=== PATIENT | female | born 1945 | race Caucasian/White ===

== ENCOUNTER 2016-07-23 07:58 | Day surgery (SDC) | payer MEDICARE, MEDICAID ==
[~2016-07-23] VITALS: Ht 162.6 cm; Wt 73.9 kg
[~2016-07-23 07:58] MED LIST: ASPIRIN EC81 MG PO; CIPROFLOXACN500 MG PO; FISH OIL1000 MG PO; FLORASTOR250 M1 PO; LEVOTHYROXIN100 MCG PO; LEVOTHYROXIN50 MCG PO; LIPITOR20 MG PO; METRONIDAZOL500 MG PO; PREDNISONE10 MG PO; TRAMADOL HCL50 MG PO; TRICOR145 MG PO; ULTRAM50 M1 PO
[2016-07-23 11:24] VITALS: BP 124/59
== END 2016-07-23 10:10 | disposition home or self-care (01) ==
LOC: ENDO 07:58
PROVIDERS: ATTEND Surgery
PROC: 0DBP8ZX Excision of Rectum, Via Natural or Artificial Opening Endoscopic, Diagnostic (ICD-10-PCS; principal; 2016-07-23)
PROC: 0DBN8ZX Excision of Sigmoid Colon, Via Natural or Artificial Opening Endoscopic, Diagnostic (ICD-10-PCS; 2016-07-23)
DX: K50.10 Crohn's disease of large intestine without complications (principal); K56.69 Other intestinal obstruction; I10 Essential (primary) hypertension

== ENCOUNTER 2017-01-03 20:01 | Emergency (ER) | payer MEDICARE ==
[~2017-01-03] VITALS: Ht 162.6 cm; Wt 79.6 kg
[2017-01-03] MEDS ORDERED: LEVOTHYROXIN75 MCG PO (20:25)
[2017-01-03 20:48] VITALS: BP 138/74
== END 2017-01-03 20:53 | disposition home or self-care (01) ==
LOC: ED 20:01
DX: S96.911A Strain of unspecified muscle and tendon at ankle and foot level, right foot, initial encounter (principal); E03.9 Hypothyroidism, unspecified; G47.30 Sleep apnea, unspecified; X58.XXXA Exposure to other specified factors, initial encounter

== ENCOUNTER 2019-03-29 16:18 | Emergency (ER) | payer MEDICARE, MEDICAID ==
[~2019-03-29] VITALS: Ht 162.6 cm; Wt 67.0 kg
[~2019-03-29 16:18] MED LIST changes: +ACCUPRIL5 MG PO; +CALCI10 XX; +CALCIU1 PO; +HYDROCO/APAP1 TA9 PO; +LEVOTHYROXIN75 MCG PO; +LIPITOR10 M1 PO
[2019-03-29] MEDS ORDERED: TOVIAZ8 MG PO (17:06)
[2019-03-29 18:15] LABS: HEMATOCRIT 48.3 % (37.0-47.0); HEMOGLOBIN 15.7 g/dl (12.0-16.0); IMMATURE GRANULOCYTES 0.5 % (0.0-5.0); MEAN CELL VOLUME 89.3 fL CALC (80.0-100.0); MEAN CORPUSCULAR HGB CONC 32.5 g/L CALC (32.0-36.0); NEUT# 3.64 thou/uL (2.00-7.15); RED BLOOD COUNT 5.41 mill/uL (4.20-5.60); RED CELL DISTRI WIDTH 13.2 % (11.5-15.5)
[2019-03-29 18:31] LABS: BUN 16 mg/dL (8-23); BUN/CREATININE RATIO 34 (12-20 (CALC)); CARBON DIOXIDE 27 mmol/l (22-30); CHLORIDE 98 mmol/l (95-108); CREATININE 0.5 mg/dL (0.5-1.0); GFR > 60 ML/MIN (>=60 (CALC)); GFR FOR AFR.AMER. > 60 ML/MIN (>=60 (CALC)); SODIUM 138 mmol/l (137-146)
[2019-03-29 18:32] LABS: ANION GAP 16 (6-22 (CALC))
[2019-03-29] MEDS ORDERED: ONDANSETRON4 MG PO (18:53)
[2019-03-29] MEDS ORDERED: K-TAB20 MEQ PO (18:53)
[2019-03-29] MEDS ORDERED: ZPAK PO (18:53)
[2019-03-29 19:05] VITALS: BP 134/72
== END 2019-03-29 19:23 | disposition home or self-care (01) ==
LOC: ED 16:18
PROVIDERS: Family Medicine
DX: K52.9 Noninfective gastroenteritis and colitis, unspecified (principal); J06.9 Acute upper respiratory infection, unspecified; E87.6 Hypokalemia

== ENCOUNTER 2019-10-25 17:55 | Emergency (ER) | payer MEDICARE ==
[~2019-10-25] VITALS: Ht 162.6 cm; Wt 69.0 kg
[~2019-10-25 17:55] MED LIST changes: +K-TAB20 MEQ PO; +ONDANSETRON4 MG PO; +TOVIAZ8 MG PO; +ZPAK PO
[2019-10-25 18:01] VITALS: BP 151/102
[2019-10-25] MEDS ORDERED: AMOX/K CLAV875 M1 PO (18:18)
== END 2019-10-25 18:58 | disposition home or self-care (01) ==
LOC: ED 17:55
DX: K08.89 Other specified disorders of teeth and supporting structures (principal)

== ENCOUNTER 2020-03-09 14:23 | Observation (INO) | payer MEDICARE ==
[~2020-03-09] VITALS: Ht 162.6 cm; Wt 71.7 kg
[~2020-03-09 14:23] MED LIST changes: +AMOX/K CLAV875 M1 PO
--- NOTE | 2020-03-09 14:41 | NUR ---
PT AMBULATED TO ROOM WITH STEADY GAIT, NO SOB OR DISTRESS NOTED, FOR BEDSIDE TRIAGE CALL PAZ WITHIN REACH
--- NOTE | 2020-03-09 15:40 | NUR ---
PT RESTING ON STRETCHER WITH INFUSION INFUSING PATENTLY. DENIES ANY NEEDS AT THIS TIME
[2020-03-09 16:41] LABS: URINE BILIRUBIN - DIPSTICK NEGATIVE (NEGATIVE); URINE BLOOD DIPSTICK TRACE-INTACT (NEGATIVE); URINE COLOR YELLOW; URINE GLUCOSE - DIPSTICK NEGATIVE (NEGATIVE); URINE KETONE TRACE mg/dL (NEGATIVE); URINE LEUK ESTERASE NEGATIVE (NEGATIVE); URINE NITRITE - DIPSTICK POSITIVE (Negative); URINE PROTEIN - DIPSTICK NEGATIVE (NEG-TRACE); URINE RBC 0-2 RBC/hpf (0-5); URINE SPECIFIC GRAVITY 1.025; URINE UROBILINOGEN - DIPSTICK 0.2 E.U./dL (0.2)
[2020-03-09 16:42] LABS: URINE BACTERIA MANY hpf
--- NOTE | 2020-03-09 16:49 | NUR ---
PT RECONNECTED TO MONITORING EQUIP AND MAG INFUSION. PT DENIES ANY NEEDS AT THIS TIME
--- NOTE | 2020-03-09 19:05 | NUR ---
GAVE REPORT TO CHACHO
--- NOTE | 2020-03-09 19:18 | NUR ---
IV INFUSING. DISPOSITION PENDING. RESTING QUIETLY.
--- NOTE | 2020-03-09 20:23 | NUR ---
CONTACTED DAUGHTER FOR PT TO ADVISE OF ADMISSION.
--- NOTE | 2020-03-09 21:13 | NUR ---
RESTING QUIETLY AWAITING ROOM ASSIGNMENT.
--- NOTE | 2020-03-09 21:35 | NUR ---
Admission Note Report Given to: WADE MCCORMACK Transported by: X Wheelchair Stretcher Transported with: X Nurse Transporter X Patent IV O2 X Records Associate Location: X ICU [facility]
--- NOTE | 2020-03-09 21:40 | NUR ---
75 yr old white female admitted icu3 as medsurg tele overflow per w/c from er. denies weakness @ present. amb to bed x1 assist. mahesh well. bed weight obtained. campus monitor shows sinus rhythm hr 83. #20 rac saline lock. history obtained per pt & er record. oriented to room. fall precautions initiated. supper meal given as requested.
[2020-03-09 21:45] VITALS: BP 173/71
--- NOTE | 2020-03-10 00:01 | NUR ---
athletic monitor shows sinus rhythm hr 80.
[2020-03-10 00:45] VITALS: BP 110/56
[2020-03-10 04:00] VITALS: BP 121/52
--- NOTE | 2020-03-10 04:00 | NUR ---
monitor car operator shows sinus rhythm hr 82.
[2020-03-10 07:00] VITALS: BP 155/77
--- NOTE | 2020-03-10 07:30 | NUR ---
pt awake in bed; no apparent distress noted; assessment completed at this time; pt alert and oriented; admits to headache; will medicated; no n/v noted per this creative services writer; resp even and unlabored; lungs clear; skin color wnl; ra; hr reg; strong pulses; no edema noted; sr on monitor; abd soft with bs present; no bm noted per creative services writer; pt admits to diarrhea x2 during the night; pt admits to voiding without complication; no urine to inspect at this time; pt refusing bsc/ ambulates to bathroom; #20 to rac saline locked; no redness or edema noted at site; scabs noted to shins; pt admits to fall; plan of care/ am meds explained; fall prec explained; call light within reach; will continue to monitor
--- NOTE | 2020-03-10 08:20 | NUR ---
awake in bed; no apparent distress noted; sr on monitor; call light within reach; will continue to monitor
[2020-03-10] MEDS ORDERED: ATORVASTATIN CA10 MG PO (09:25)
[2020-03-10] MEDS ORDERED: OMEPRAZOLE DR40 MG PO (09:28)
[2020-03-10] MEDS ORDERED: LEVOTHYROXIN75 MCG PO (09:29)
--- NOTE | 2020-03-10 10:20 | NUR ---
awake; no apparent distress noted; pt offers no complaints; iv intact; sr on monitor; call light within reach; will continue to monitor
--- NOTE | 2020-03-10 10:45 | NUR ---
Dr Brock present at bedside to assess pt and discuss plan of care
[2020-03-10 11:00] VITALS: BP 115/67
--- NOTE | 2020-03-10 12:17 | NUR ---
awake in bed eating lunch; no apparent distress noted; pt offers no complaints; iv intact; sr on monitor; call light within reach; will continue to monitor
--- NOTE | 2020-03-10 14:20 | NUR ---
resting in bed with eyes closed; no apparent distress noted; sr on monitor; iv intact; call light within reach; will continue to monitor
--- NOTE | 2020-03-10 16:17 | NUR ---
pt awake in bed; pt has removed all monitoring attachments; pt states "they told me to"; monitoring attachments explained and to be reapplied; iv intact; call light within reach; will continue to monitor
[2020-03-10 16:30] VITALS: BP 121/66
--- NOTE | 2020-03-10 17:57 | NUR ---
pt awake in bed eating dinner; no apparent distress noted; iv flushed and patent; no redness or edema noted at site; sr on monitor; pt offers no complaints; call light within reach
--- NOTE | 2020-03-10 19:00 | NUR ---
RECEIVED REPORT FROM AM NURSE. PATIENT CURRENTLY IN BED. NO REQUEST OR COMPLAINTS. WILL CONTINUE TO MONITOR.
[2020-03-10 19:50] VITALS: BP 139/69
--- NOTE | 2020-03-10 21:00 | NUR ---
ASSESSMENT COMPLETED. PATIENT VITALS STABLE. PATIENT WITH NO SIGNS OF DISTRESS. PATIENT WITH NO REQUEST. PATIENT RESTING IN BED. PERIPHERAL IV. SALINE LOCK. WILL CONTINUE TO MONITOR.
--- NOTE | 2020-03-10 23:00 | NUR ---
patient sleeping. patient with no signs of distress. vitals stable. patient with no request will continue to monitor.
[2020-03-11 00:13] VITALS: BP 105/51
--- NOTE | 2020-03-11 01:00 | NUR ---
patient continues sleeping. patient self repositioned. patient in no distress. will continue to monitor.
--- NOTE | 2020-03-11 03:00 | NUR ---
PATIENT SLEEPING. NO CHANGES. WILL CONTINUE TO MONITOR.
[2020-03-11 04:50] VITALS: BP 111/55
--- NOTE | 2020-03-11 05:00 | NUR ---
PATIENT AMBULATED TO BATHROOM. PATIENT VOIDED. NO BM. STAND BY ASSIST. PATIENT WITH NO SIGNS OF DISTRESS. WILL CONTINUE TO MONITOR.
[2020-03-11 05:02] LABS: IMMATURE GRANULOCYTES 0.3 % (0.0-5.0); MEAN CELL VOLUME 94.1 fL CALC (80.0-100.0); MEAN CORPUSCULAR HGB 29.8 pG CALC (26.0-32.0); MEAN CORPUSCULAR HGB CONC 31.7 g/dL CAL (32.0-36.0); NEUT# 3.62 thou/uL (2.00-7.15); RED BLOOD COUNT 4.43 mill/uL (4.20-5.60); RED CELL DISTRI WIDTH 14.2 % (11.5-15.5)
[2020-03-11 05:05] LABS: HEMATOCRIT 41.7 % (37.0-47.0); HEMOGLOBIN 13.2 g/dl (12.0-16.0)
[2020-03-11 05:07] LABS: ANION GAP 11 (6-22 (CALC)); BUN 17 mg/dL (8-23); BUN/CREATININE RATIO 24 (12-20 (CALC)); CARBON DIOXIDE 27 mmol/l (22-30); CHLORIDE 107 mmol/l (95-108); CREATININE 0.7 mg/dL (0.5-1.0); GFR > 60 ML/MIN (>=60 (CALC)); GFR FOR AFR.AMER. > 60 ML/MIN (>=60 (CALC)); POTASSIUM 3.5 mmol/l (3.5-5.1); SODIUM 141 mmol/l (137-146)
[2020-03-11 07:15] VITALS: BP 148/72
--- NOTE | 2020-03-11 07:15 | NUR ---
pt resting in bed with eyes closed; no apparent distress noted; easily aroused; assessment completed at this time; pt alert and oriented; admits to back pain; will medicate; no n/v noted; resp even and unlabored; lungs clear; skin color wnl; ra; hr reg; strong pulses; no edema noted; sr/ occ pvc on monitor; abd soft with bs present; no bm noted per residential mortgage underwriter; pt admits to voiding without pain or burning; no urine to inspect at this time; pt refusing bsc; #20 to rac flushed and patent; no redness or edema noted at site; scab noted to cardenas; plan of care/ am meds explained; call light within reach; will continue to monitor
--- NOTE | 2020-03-11 08:10 | NUR ---
awake in bed eating breakfast; no apparent distress noted; iv intact; sr on monitor; call light within reach; will continue to monitor
--- NOTE | 2020-03-11 10:04 | NUR ---
awake in bed; pt has removed lunchroom monitor; iv intact; sr on monitor; call light within reach; will continue to monitor
[2020-03-11] MEDS ORDERED: OMNICEF300 MG PO (10:05)
--- NOTE | 2020-03-11 10:20 | NUR ---
Dr Brock present at bedside to assess pt and discuss plan of care
--- NOTE | 2020-03-11 11:04 | NUR ---
SARAH Spencer present at bedside to discuss home health
--- NOTE | 2020-03-11 12:01 | NUR ---
awake in bed eating lunch; no apparent distress noted; pt offers no complaints; iv intact and patent; no redness or edema noted at site; sr on monitor; iv intact; call light within reach; will continue to monitor
[2020-03-11 12:47] VITALS: BP 138/64
--- NOTE | 2020-03-11 12:47 | NUR ---
DISCHARGE INSTRUCTIONS REVIEWED IN DETAIL; IV REMOVED WITH CATHETER TIP INTACT;
--- NOTE | 2020-03-11 12:56 | NUR ---
Discharge instructions given. Patient verbalizes understanding of same. Discharged in stable condition via Wheelchair to Home with SELF. All belongings sent with pt.
== END 2020-03-11 12:56 | disposition home health service (06) ==
LOC: ED 14:23 → ED-I 18:19 → ED 18:39 → ICU 18:40
PROVIDERS: Family Medicine; ADMIT Internal Medicine; ATTEND Internal Medicine
DX: R53.1 Weakness (principal); N39.0 Urinary tract infection, site not specified; E83.42 Hypomagnesemia; E03.9 Hypothyroidism, unspecified; B96.20 Unspecified Escherichia coli [E. coli] as the cause of diseases classified elsewhere; Z87.820 Personal history of traumatic brain injury; Z20.828 Contact with and (suspected) exposure to other viral communicable diseases
CPT/HCPCS: J3475

== ENCOUNTER 2021-10-03 17:08 | Emergency (ER) | payer MEDICARE ==
[~2021-10-03] VITALS: Ht 162.6 cm; Wt 69.0 kg
[2021-10-03] VITALS (9 sets, daily range): BP systolic 110–223; BP diastolic 67–193
[~2021-10-03 17:08] MED LIST changes: +ATORVASTATIN CA10 MG PO; +BRILINTA90 MG PO; +CARAFATE1 GM PO; +CYANOCOBAL1000 MCG/M; +ENTRESTO 24-261 TAB; +LASIX 40 MG TAB40 MG PO; +LOPRESSOR25 M1 PO; +MYRBETRIQ25 MG; +OMEPRAZOLE DR40 MG PO; +OMNICEF300 MG PO; +PANTOPRAZOLE SO40 M1 PO; +ROSUVASTATIN CA20 MG; +ZOLPIDEM TARTRA10 MG PO
== END 2021-10-03 21:42 ==
LOC: ED 17:08
DX: T81.718A Complication of other artery following a procedure, not elsewhere classified, initial encounter (principal); I72.4 Aneurysm of artery of lower extremity; Y84.0 Cardiac catheterization as the cause of abnormal reaction of the patient, or of later complication, without mention of misadventure at the time of the procedure; Z95.5 Presence of coronary angioplasty implant and graft

== ENCOUNTER 2021-12-07 18:15 | Emergency (ER) | payer MEDICARE ==
[~2021-12-07] VITALS: Ht 162.6 cm; Wt 69.1 kg
[2021-12-07 18:55] VITALS: BP 98/81
[2021-12-07 19:01] VITALS: BP 142/67
[2021-12-07 19:15] VITALS: BP 132/57
[2021-12-07 19:30] VITALS: BP 115/64
[2021-12-07 19:33] LABS: HEMATOCRIT 39.7 % (37.0-47.0); HEMOGLOBIN 13.3 g/dl (12.0-16.0); IMMATURE GRANULOCYTES 0.4 % (0.0-5.0); MEAN CELL VOLUME 90.4 fL CALC (80.0-100.0); MEAN CORPUSCULAR HGB 30.3 pG CALC (26.0-32.0); MEAN CORPUSCULAR HGB CONC 33.5 g/dL CAL (32.0-36.0); NEUT# 5.43 thou/uL (2.00-7.15); RED BLOOD COUNT 4.39 mill/uL (4.20-5.60); RED CELL DISTRI WIDTH 13.2 % (11.5-15.5)
[2021-12-07 19:49] LABS: ALBUMIN 4.7 g/dL (3.2-5.0); ALKALINE PHOSPHATASE 87 u/l (38-126); BILIRUBIN, TOTAL 0.4 mg/dL (0.0-1.4); BUN 20 mg/dL (8-23); BUN/CREATININE RATIO 31 (12-20 (CALC)); CARBON DIOXIDE 25 mmol/l (22-30); CHLORIDE 105 mmol/l (95-108); CREATININE 0.7 mg/dL (0.5-1.0); GFR FOR AFR.AMER. > 60 ML/MIN (>=60 (CALC)); GFR OTHER RACES > 60 ML/MIN (>=60 (CALC)); SGOT/AST 47 u/l (9-36); SODIUM 141 mmol/l (137-146); TOTAL PROTEIN 7.8 g/dL (6.3-8.2)
[2021-12-07 19:51] LABS: D-DIMER 0.23 mg/L (0.19-0.60)
[2021-12-07 19:57] LABS: ACT PARTIAL THROMBO TIME 23.8 SECONDS (20.0-32.5); INTERNATIONAL NORMALIZED RATIO 1.2 RATIO (0.7-1.3); PROTHROMBIN TIME 12.1 SECONDS (9.0-12.5)
[2021-12-07 20:01] LABS: MYOGLOBIN 38 ng/mL (0 - 62)
[2021-12-07 20:07] LABS: ANION GAP 15 (6-22 (CALC))
[2021-12-07 21:09] VITALS: BP 115/64
== END 2021-12-07 21:12 | disposition home or self-care (01) ==
LOC: ED 18:15
PROVIDERS: Family Medicine
DX: S90.01XA Contusion of right ankle, initial encounter (principal); R06.00 Dyspnea, unspecified; I50.9 Heart failure, unspecified; I25.2 Old myocardial infarction; X58.XXXA Exposure to other specified factors, initial encounter; Z86.718 Personal history of other venous thrombosis and embolism; Z95.820 Peripheral vascular angioplasty status with implants and grafts; Z79.02 Long term (current) use of antithrombotics/antiplatelets; Z79.82 Long term (current) use of aspirin; M79.604 Pain in right leg; M79.89 Other specified soft tissue disorders

== ENCOUNTER 2021-12-17 15:27 | Emergency (ER) | payer MEDICARE ==
[~2021-12-17] VITALS: Ht 162.6 cm; Wt 72.3 kg
[2021-12-17 18:23] LABS: HEMATOCRIT 44.2 % (37.0-47.0); IMMATURE GRANULOCYTES 0.5 % (0.0-5.0); MEAN CELL VOLUME 88.9 fL CALC (80.0-100.0); MEAN CORPUSCULAR HGB 30.2 pG CALC (26.0-32.0); MEAN CORPUSCULAR HGB CONC 33.9 g/dL CAL (32.0-36.0); NEUT# 4.88 thou/uL (2.00-7.15); RED BLOOD COUNT 4.97 mill/uL (4.20-5.60); RED CELL DISTRI WIDTH 13.6 % (11.5-15.5)
[2021-12-17 19:21] LABS: ALBUMIN 5.1 g/dL (3.2-5.0); ALKALINE PHOSPHATASE 60 u/l (38-126); BILIRUBIN, TOTAL 0.6 mg/dL (0.0-1.4); BUN 19 mg/dL (8-23); BUN/CREATININE RATIO 31 (12-20 (CALC)); CHLORIDE 98 mmol/l (95-108); CREATININE 0.6 mg/dL (0.5-1.0); GFR FOR AFR.AMER. > 60 ML/MIN (>=60 (CALC)); GFR OTHER RACES > 60 ML/MIN (>=60 (CALC)); LIPASE 106 u/l (23-300); POTASSIUM 3.6 mmol/l (3.5-5.1); SODIUM 137 mmol/l (137-146)
[2021-12-17 19:24] LABS: ANION GAP 22 (6-22 (CALC)); CARBON DIOXIDE 21 mmol/l (22-30); SGOT/AST 93 u/l (9-36)
[2021-12-17] MEDS ORDERED: ONDANSETRON4 MG PO (19:54)
[2021-12-17 20:38] VITALS: BP 116/67
== END 2021-12-17 20:49 | disposition home or self-care (01) ==
LOC: ED 15:27
PROVIDERS: Nurse Practitioner
DX: U07.1 COVID-19 (principal)

== ENCOUNTER 2022-04-14 02:52 | Emergency (ER) | payer MEDICARE ==
[~2022-04-14] VITALS: Ht 162.6 cm; Wt 70.0 kg
[2022-04-14] VITALS (18 sets, daily range): BP systolic 96–147; BP diastolic 44–83
[2022-04-14 03:42] LABS: BASO% 0.5 % (0-3); EOS% 3.7 % (0-8); HEMATOCRIT 42.1 % (37.0-47.0); HEMOGLOBIN 13.4 g/dl (12.0-16.0); IMMATURE GRANULOCYTES 0.4 % (0.0-5.0); LYMPH% 28.7 % (15-41); MEAN CELL VOLUME 93.1 fL CALC (80.0-100.0); MEAN CORPUSCULAR HGB 29.6 pG CALC (26.0-32.0); MEAN CORPUSCULAR HGB CONC 31.8 g/dL CAL (32.0-36.0); MONO% 8.1 % (2-13); NEUT# 5.47 thou/uL (2.00-7.15); NEUT% 58.6 % (42-76); RED BLOOD COUNT 4.52 mill/uL (4.20-5.60); RED CELL DISTRI WIDTH 13.4 % (11.5-15.5)
[2022-04-14 03:56] LABS: ALBUMIN 4.3 g/dL (3.2-5.0); ALKALINE PHOSPHATASE 79 u/l (38-126); ANION GAP 13 (6-22 (CALC)); BILIRUBIN, TOTAL 0.3 mg/dL (0.0-1.4); BUN 22 mg/dL (8-23); BUN/CREATININE RATIO 31 (12-20 (CALC)); CARBON DIOXIDE 26 mmol/l (22-30); CHLORIDE 104 mmol/l (95-108); CREATININE 0.7 mg/dL (0.5-1.0); GFR FOR AFR.AMER. > 60 ML/MIN (>=60 (CALC)); GFR OTHER RACES > 60 ML/MIN (>=60 (CALC)); LIPASE 97 u/l (23-300); POTASSIUM 4.1 mmol/l (3.5-5.1); SGOT/AST 64 u/l (9-36); SODIUM 138 mmol/l (137-146)
[2022-04-14 04:16] LABS: D-DIMER 0.17 mg/L (0.19-0.60)
[2022-04-14 04:31] LABS: ACT PARTIAL THROMBO TIME 23.6 SECONDS (20.0-32.5); INTERNATIONAL NORMALIZED RATIO 1.2 RATIO (0.7-1.3); PROTHROMBIN TIME 11.7 SECONDS (9.0-12.5)
[2022-04-14] MEDS ORDERED: PEPCID40 MG PO (06:53)
== END 2022-04-14 08:11 | disposition home or self-care (01) ==
LOC: ED 02:52
PROVIDERS: Family Medicine
DX: R07.89 Other chest pain (principal); I11.0 Hypertensive heart disease with heart failure; I50.9 Heart failure, unspecified; I25.10 Atherosclerotic heart disease of native coronary artery without angina pectoris; I25.2 Old myocardial infarction; Z95.5 Presence of coronary angioplasty implant and graft

== ENCOUNTER 2022-08-30 20:07 | Observation (INO) | payer MEDICARE ==
[2022-08-30] VITALS (9 sets, daily range): BP systolic 110–177; BP diastolic 52–88
[~2022-08-30] VITALS: Ht 162.6 cm; Wt 74.6 kg
[~2022-08-30 20:07] MED LIST changes: +PEPCID40 MG PO
[2022-08-30 21:49] LABS: URINE BILIRUBIN - DIPSTICK NEGATIVE (NEGATIVE); URINE BLOOD DIPSTICK MODERATE (NEGATIVE); URINE COLOR YELLOW; URINE GLUCOSE - DIPSTICK NEGATIVE (NEGATIVE); URINE KETONE 15 mg/dL (NEGATIVE); URINE LEUK ESTERASE NEGATIVE (NEGATIVE); URINE PH 5.5 (4.5-8.0); URINE PROTEIN - DIPSTICK TRACE mg/dL (NEG-TRACE); URINE SPECIFIC GRAVITY >=1.030; URINE UROBILINOGEN - DIPSTICK 0.2 E.U./dL (0.2)
[2022-08-30 21:50] LABS: BASO% 0.4 % (0-3); EOS% 3.1 % (0-8); HEMATOCRIT 45.9 % (37.0-47.0); HEMOGLOBIN 14.4 g/dl (12.0-16.0); IMMATURE GRANULOCYTES 0.3 % (0.0-5.0); LYMPH% 29.2 % (15-41); MEAN CELL VOLUME 91.6 fL CALC (80.0-100.0); MEAN CORPUSCULAR HGB 28.7 pG CALC (26.0-32.0); MEAN CORPUSCULAR HGB CONC 31.4 g/dL CAL (32.0-36.0); MONO% 7.4 % (2-13); NEUT# 5.36 thou/uL (2.00-7.15); NEUT% 59.6 % (42-76); RED BLOOD COUNT 5.01 mill/uL (4.20-5.60); RED CELL DISTRI WIDTH 13.4 % (11.5-15.5)
[2022-08-30 21:52] LABS: URINE NITRITE - DIPSTICK POSITIVE (Negative)
[2022-08-30 22:00] LABS: AMYLASE 111 u/l (30-110); BUN 22 mg/dL (8-23); BUN/CREATININE RATIO 28 (12-20 (CALC)); CHLORIDE 101 mmol/l (95-108); CREATININE 0.8 mg/dL (0.5-1.0); GFR FOR AFR.AMER. > 60 ML/MIN (>=60 (CALC)); GFR OTHER RACES > 60 ML/MIN (>=60 (CALC)); LIPASE 1626 u/l (23-300); POTASSIUM 3.8 mmol/l (3.5-5.1); SODIUM 138 mmol/l (137-146); TOTAL PROTEIN 8.1 g/dL (6.3-8.2)
[2022-08-30 22:02] LABS: ALKALINE PHOSPHATASE 97 u/l (38-126); ANION GAP 18 (6-22 (CALC)); BILIRUBIN, TOTAL 0.6 mg/dL (0.02-1.3); CARBON DIOXIDE 23 mmol/l (22-30); SGOT/AST 97 u/l (9-36)
[2022-08-30 22:04] LABS: URINE BACTERIA MODERATE hpf; URINE SQUAMOUS EPITHELIAL CELL FEW EPI/hpf (0-FEW)
[2022-08-31] MEDS ORDERED: OMEPRAZOLE DR40 MG PO (01:05)
[2022-08-31] MEDS ORDERED: LASIX 20 MG TAB20 MG PO (01:06)
[2022-08-31] MEDS ORDERED: AMBIEN10 MG PO (01:07)
[2022-08-31] MEDS ORDERED: PLAVIX75 MG PO (01:07)
[2022-08-31] MEDS ORDERED: ASPIRINCHW 81MG PO (01:08)
[2022-08-31] MEDS ORDERED: MAGNESIUM OXID400 M1 (01:09)
[2022-08-31] MEDS ORDERED: [UNRECOGNIZED DRUG - OTHER] (01:10)
[2022-08-31] MEDS ORDERED: CALCIUM600 M1 PO (01:10)
[2022-08-31] MEDS ORDERED: HYDROCORTISONE12 (01:11)
[2022-08-31] MEDS ORDERED: PROLIA60 MG/ML SC (01:12)
[2022-08-31 07:10] VITALS: BP 119/54
[2022-08-31 09:21] VITALS: BP 125/61
[2022-08-31 10:30] VITALS: BP 135/67
[2022-08-31 20:10] VITALS: BP 114/49
[2022-09-01 00:28] VITALS: BP 103/50
[2022-09-01 04:15] VITALS: BP 125/49
[2022-09-01 05:55] LABS: BASO% 0.9 % (0-3); EOS% 5.8 % (0-8); IMMATURE GRANULOCYTES 0.2 % (0.0-5.0); LYMPH% 22.3 % (15-41); MEAN CELL VOLUME 93.3 fL CALC (80.0-100.0); MEAN CORPUSCULAR HGB 29.4 pG CALC (26.0-32.0); MEAN CORPUSCULAR HGB CONC 31.5 g/dL CAL (32.0-36.0); NEUT# 4.17 thou/uL (2.00-7.15); NEUT% 63.8 % (42-76); RED BLOOD COUNT 4.05 mill/uL (4.20-5.60)
[2022-09-01 06:02] LABS: HEMATOCRIT 37.8 % (37.0-47.0); HEMOGLOBIN 11.9 g/dl (12.0-16.0)
[2022-09-01 06:09] LABS: ALKALINE PHOSPHATASE 101 u/l (38-126); AMYLASE 82 u/l (30-110); ANION GAP 10 (6-22 (CALC)); BUN 9 mg/dL (8-23); BUN/CREATININE RATIO 16 (12-20 (CALC)); CARBON DIOXIDE 24 mmol/l (22-30); CHLORIDE 109 mmol/l (95-108); CREATININE 0.5 mg/dL (0.5-1.0); GFR FOR AFR.AMER. > 60 ML/MIN (>=60 (CALC)); GFR OTHER RACES > 60 ML/MIN (>=60 (CALC)); LIPASE 506 u/l (23-300); POTASSIUM 3.8 mmol/l (3.5-5.1); SGOT/AST 161 u/l (9-36); SODIUM 139 mmol/l (137-146)
[2022-09-01 06:10] LABS: ALBUMIN 3.4 g/dL (3.2-5.0); BILIRUBIN, TOTAL 0.2 mg/dL (0.02-1.3); TOTAL PROTEIN 5.8 g/dL (6.3-8.2)
[2022-09-01 06:35] VITALS: BP 108/52
[2022-09-01 07:36] VITALS: BP 129/55
[2022-09-01 10:34] VITALS: BP 107/45; BP 161/41
[2022-09-01 20:17] VITALS: BP 119/46
[2022-09-02 00:24] VITALS: BP 91/40
[2022-09-02 04:06] VITALS: BP 130/57
[2022-09-02 06:33] LABS: BASO% 0.8 % (0-3); EOS% 5.2 % (0-8); HEMOGLOBIN 11.3 g/dl (12.0-16.0); IMMATURE GRANULOCYTES 0.2 % (0.0-5.0); LYMPH% 25.4 % (15-41); MEAN CELL VOLUME 94.2 fL CALC (80.0-100.0); MEAN CORPUSCULAR HGB 29.6 pG CALC (26.0-32.0); MEAN CORPUSCULAR HGB CONC 31.4 g/dL CAL (32.0-36.0); MONO% 7.5 % (2-13); NEUT# 3.19 thou/uL (2.00-7.15); NEUT% 60.9 % (42-76); RED BLOOD COUNT 3.82 mill/uL (4.20-5.60); RED CELL DISTRI WIDTH 13.9 % (11.5-15.5)
[2022-09-02 06:41] VITALS: BP 126/58
[2022-09-02 06:43] LABS: ALBUMIN 3.2 g/dL (3.2-5.0); ALKALINE PHOSPHATASE 81 u/l (38-126); AMYLASE 54 u/l (30-110); ANION GAP 9 (6-22 (CALC)); BILIRUBIN, TOTAL 0.2 mg/dL (0.02-1.3); BUN 6 mg/dL (8-23); BUN/CREATININE RATIO 13 (12-20 (CALC)); CARBON DIOXIDE 24 mmol/l (22-30); CHLORIDE 109 mmol/l (95-108); CREATININE 0.5 mg/dL (0.5-1.0); GFR FOR AFR.AMER. > 60 ML/MIN (>=60 (CALC)); GFR OTHER RACES > 60 ML/MIN (>=60 (CALC)); LIPASE 145 u/l (23-300); POTASSIUM 3.4 mmol/l (3.5-5.1); SGOT/AST 72 u/l (9-36); SODIUM 139 mmol/l (137-146); TOTAL PROTEIN 5.3 g/dL (6.3-8.2)
[2022-09-02 08:00] VITALS: BP 126/58
[2022-09-02 10:30] VITALS: BP 124/52
[2022-09-02] MEDS ORDERED: KEFLEX500 MG PO (11:32)
[2022-09-02 12:00] VITALS: BP 124/52
== END 2022-09-02 12:30 | disposition home or self-care (01) ==
LOC: ED 20:07 → ED-I 08-31 00:40 → ED 08-31 01:10 → MS2 08-31 01:11
PROVIDERS: Emergency Medicine; Nurse Practitioner Family; ADMIT Internal Medicine; ATTEND Internal Medicine
DX: K85.90 Acute pancreatitis without necrosis or infection, unspecified (principal); N39.0 Urinary tract infection, site not specified; K80.20 Calculus of gallbladder without cholecystitis without obstruction; K86.1 Other chronic pancreatitis; I11.0 Hypertensive heart disease with heart failure; I50.9 Heart failure, unspecified; I25.10 Atherosclerotic heart disease of native coronary artery without angina pectoris; E03.9 Hypothyroidism, unspecified; B96.1 Klebsiella pneumoniae [K. pneumoniae] as the cause of diseases classified elsewhere; I25.2 Old myocardial infarction; Z95.820 Peripheral vascular angioplasty status with implants and grafts; Z87.820 Personal history of traumatic brain injury; Z95.5 Presence of coronary angioplasty implant and graft; Z79.02 Long term (current) use of antithrombotics/antiplatelets
CPT/HCPCS: J1650; Q9967; S0164

== ENCOUNTER 2023-04-03 16:58 | Emergency (ER) | payer MEDICARE ==
[~2023-04-03] VITALS: Ht 160 cm; Wt 68.0 kg
[~2023-04-03 16:58] MED LIST changes: +AMBIEN10 MG PO; +ASPIRINCHW 81MG PO; +CALCI17 PO; +CALCIUM600 M1 PO; +HYDROCORTISONE12; +KEFLEX500 MG PO; +LASIX 20 MG TAB20 MG PO; +MAGNESIUM OXID400 M1; +MAGNESIUM400 M1 PO; +PLAVIX75 MG PO; +PROLIA60 MG/ML SC; +[UNRECOGNIZED DRUG - OTHER] PO
[2023-04-03 17:12] VITALS: BP 158/73
[2023-04-03 17:15] VITALS: BP 157/72
[2023-04-03 17:31] VITALS: BP 117/85
[2023-04-03 17:46] VITALS: BP 112/79
[2023-04-03 17:54] LABS: BASO% 0.3 % (0-3); EOS% 2.1 % (0-8); HEMATOCRIT 43.6 % (37.0-47.0); HEMOGLOBIN 13.7 g/dl (12.0-16.0); IMMATURE GRANULOCYTES 0.4 % (0.0-5.0); LYMPH% 17.4 % (15-41); MEAN CELL VOLUME 92.8 fL CALC (80.0-100.0); MEAN CORPUSCULAR HGB 29.1 pG CALC (26.0-32.0); MEAN CORPUSCULAR HGB CONC 31.4 g/dL CAL (32.0-36.0); MONO% 8.8 % (2-13); NEUT# 7.9 thou/uL (2.00-7.15); RED BLOOD COUNT 4.7 mill/uL (4.20-5.60); RED CELL DISTRI WIDTH 16.1 % (11.5-15.5)
[2023-04-03 18:05] LABS: ALBUMIN 4.3 g/dL (3.2-5.0); ALKALINE PHOSPHATASE 86 u/l (38-126); ANION GAP 15 (6-22 (CALC)); BILIRUBIN, TOTAL 0.6 mg/dL (0.02-1.3); BUN 15 mg/dL (8-23); BUN/CREATININE RATIO 20 (12-20 (CALC)); CARBON DIOXIDE 24 mmol/l (22-30); CHLORIDE 102 mmol/l (95-108); CREATININE 0.8 mg/dL (0.5-1.0); GFR FOR AFR.AMER. > 60 ML/MIN (>=60 (CALC)); GFR OTHER RACES > 60 ML/MIN (>=60 (CALC)); LIPASE 66 u/l (23-300); POTASSIUM 4.1 mmol/l (3.5-5.1); SGOT/AST 31 u/l (9-36); SODIUM 136 mmol/l (137-146)
[2023-04-03 18:54] VITALS: BP 162/80
[2023-04-03 19:02] LABS: URINE BILIRUBIN - DIPSTICK Negative (NEGATIVE); URINE BLOOD DIPSTICK Trace-intact (NEGATIVE); URINE COLOR Yellow; URINE GLUCOSE - DIPSTICK Negative (NEGATIVE); URINE KETONE Negative (NEGATIVE); URINE LEUK ESTERASE Negative (NEGATIVE); URINE NITRITE - DIPSTICK Positive (Negative); URINE PROTEIN - DIPSTICK Negative (NEG-TRACE); URINE UROBILINOGEN - DIPSTICK 0.2 E.U./dL (0.2)
[2023-04-03 19:09] LABS: URINE RBC 0-2 RBC/hpf (0-5); URINE WBC 0-2 WBC/hpf (0-5)
[2023-04-03 19:10] LABS: URINE BACTERIA FEW hpf; URINE SQUAMOUS EPITHELIAL CELL FEW EPI/hpf (0-FEW)
[2023-04-03] MEDS ORDERED: CONSTULOSE10 GM/15 M PO (20:08)
[2023-04-03] MEDS ORDERED: KEFLEX500 MG PO (20:08)
[2023-04-03 20:13] VITALS: BP 162/80
== END 2023-04-03 20:22 | disposition home or self-care (01) ==
LOC: ED 16:58
PROVIDERS: Nurse Practitioner
DX: K59.00 Constipation, unspecified (principal); N39.0 Urinary tract infection, site not specified; B96.20 Unspecified Escherichia coli [E. coli] as the cause of diseases classified elsewhere; I50.9 Heart failure, unspecified; I25.2 Old myocardial infarction
CPT/HCPCS: Q9967

== ENCOUNTER 2023-05-25 13:00 | Emergency (ER) | payer MEDICARE ==
[~2023-05-25] VITALS: Ht 160 cm; Wt 70.3 kg
[~2023-05-25 13:00] MED LIST changes: +CONSTULOSE10 GM/15 M PO
[2023-05-25] MEDS ORDERED: ONDANSETRON HCl 4 MG/2 ML SDV IV ONE (13:05)
[2023-05-25 15:14] LABS: BASO% 0.3 % (0-3); EOS% 1.4 % (0-8); HEMATOCRIT 49.2 % (37.0-47.0); IMMATURE GRANULOCYTES 0.3 % (0.0-5.0); LYMPH% 27.5 % (15-41); MEAN CELL VOLUME 90.8 fL CALC (80.0-100.0); MEAN CORPUSCULAR HGB 29.5 pG CALC (26.0-32.0); MEAN CORPUSCULAR HGB CONC 32.5 g/dL CAL (32.0-36.0); MONO% 10.6 % (2-13); NEUT# 4.29 thou/uL (2.00-7.15); NEUT% 59.9 % (42-76); RED BLOOD COUNT 5.42 mill/uL (4.20-5.60); RED CELL DISTRI WIDTH 13.7 % (11.5-15.5)
[2023-05-25 15:31] LABS: INTERNATIONAL NORMALIZED RATIO 1.3 RATIO (0.7-1.3); PROTHROMBIN TIME 12.2 SECONDS (9.0-12.5)
[2023-05-25 15:33] LABS: ALBUMIN 4.8 g/dL (3.2-5.0); ALKALINE PHOSPHATASE 64 u/l (38-126); BILIRUBIN, TOTAL 0.6 mg/dL (0.02-1.3); BUN 13 mg/dL (8-23); BUN/CREATININE RATIO 26 (12-20 (CALC)); CHLORIDE 108 mmol/l (95-108); CREATININE 0.5 mg/dL (0.5-1.0); GFR FOR AFR.AMER. > 60 ML/MIN (>=60 (CALC)); GFR OTHER RACES > 60 ML/MIN (>=60 (CALC)); LIPASE 80 u/l (23-300); POTASSIUM 3.2 mmol/l (3.5-5.1); SGOT/AST 68 u/l (9-36); SODIUM 140 mmol/l (137-146); TOTAL PROTEIN 7.6 g/dL (6.3-8.2)
[2023-05-25 15:40] VITALS: BP 157/95
[2023-05-25 15:42] LABS: ANION GAP 16 (6-22 (CALC)); CARBON DIOXIDE 19 mmol/l (22-30)
[2023-05-25] MEDS ORDERED: SODIUM CHLORIDE 0.9% 1,000 ML IV ONE (15:50)
[2023-05-25] MEDS ORDERED: POTASSIUM CHLORIDE 20 MEQ/TAB PO ONE (17:40)
[2023-05-25 18:58] LABS: URINE BILIRUBIN - DIPSTICK Negative (NEGATIVE); URINE BLOOD DIPSTICK Small (NEGATIVE); URINE COLOR Yellow; URINE GLUCOSE - DIPSTICK Negative (NEGATIVE); URINE KETONE Trace mg/dL (NEGATIVE); URINE LEUK ESTERASE Negative (NEGATIVE); URINE NITRITE - DIPSTICK Positive (Negative); URINE PH 5.5 (4.5-8.0); URINE PROTEIN - DIPSTICK Negative (NEG-TRACE); URINE UROBILINOGEN - DIPSTICK 0.2 E.U./dL (0.2)
[2023-05-25 19:03] LABS: URINE BACTERIA MODERATE hpf; URINE SQUAMOUS EPITHELIAL CELL MODERATE EPI/hpf (0-FEW)
[2023-05-25] MEDS ORDERED: CIPROFLOXACN500 MG PO (19:49)
[2023-05-25] MEDS ORDERED: METRONIDAZOLE500 MG PO (19:49)
[2023-05-25] MEDS ORDERED: metroNIDAZOLE 500 MG/TAB PO ONE (19:55)
[2023-05-25] MEDS ORDERED: CIPROFLOXACIN HCL 500 MG/TAB PO ONE (19:55)
[2023-05-25 20:27] VITALS: BP 142/77
== END 2023-05-25 20:30 | disposition home or self-care (01) ==
LOC: ED 13:00
PROVIDERS: Family Medicine
DX: K57.31 Diverticulosis of large intestine without perforation or abscess with bleeding (principal); N39.0 Urinary tract infection, site not specified; B96.89 Other specified bacterial agents as the cause of diseases classified elsewhere; I50.9 Heart failure, unspecified; I25.2 Old myocardial infarction; Z86.718 Personal history of other venous thrombosis and embolism; Z95.5 Presence of coronary angioplasty implant and graft; Z95.820 Peripheral vascular angioplasty status with implants and grafts; Z20.822 Contact with and (suspected) exposure to COVID-19
CPT/HCPCS: Q9967

== ENCOUNTER 2024-05-25 12:42 | Observation (INO) | payer MEDICARE, MEDICAID ==
[~2024-05-25] VITALS: Ht 160 cm; Wt 74.2 kg
[2024-05-25] VITALS (23 sets, daily range): BP systolic 70–151; BP diastolic 52–81
[~2024-05-25 12:42] MED LIST changes: +METRONIDAZOLE500 MG PO
[2024-05-25] MEDS ORDERED: ASPIRIN 81 MG/TAB PO ONE (12:55)
[2024-05-25] MEDS ORDERED: NITROGLYCERIN 0.4 MG/TAB SL ONE (13:00)
[2024-05-25 13:07] LABS: BASO% 0.7 % (0-3); EOS% 3.8 % (0-8); HEMATOCRIT 46.4 % (37.0-47.0); IMMATURE GRANULOCYTES 0.2 % (0.0-5.0); LYMPH% 29.9 % (15-41); MEAN CELL VOLUME 91.7 fL CALC (80.0-100.0); MEAN CORPUSCULAR HGB 29.6 pG CALC (26.0-32.0); MEAN CORPUSCULAR HGB CONC 32.3 g/dL CAL (32.0-36.0); MONO% 7.9 % (2-13); NEUT# 3.14 thou/uL (2.00-7.15); NEUT% 57.5 % (42-76); RED BLOOD COUNT 5.06 mill/uL (4.20-5.60); RED CELL DISTRI WIDTH 14.3 % (11.5-15.5)
[2024-05-25 13:26] LABS: ALBUMIN 4.6 g/dL (3.2-5.0); ALKALINE PHOSPHATASE 89 u/l (38-126); ANION GAP 12 (6-22 (CALC)); BILIRUBIN, TOTAL 0.7 mg/dL (0.02-1.3); BUN 16 mg/dL (8-23); BUN/CREATININE RATIO 24 (12-20 (CALC)); CARBON DIOXIDE 28 mmol/l (22-30); CHLORIDE 106 mmol/l (95-108); CREATININE 0.7 mg/dL (0.5-1.0); ESTIMATED GFR 87 ML/MIN (>=90 (CALC)); LIPASE 75 u/l (23-300); SGOT/AST 33 u/l (9-36); SODIUM 141 mmol/l (137-146); TOTAL PROTEIN 7.5 g/dL (6.3-8.2)
[2024-05-25] MEDS ORDERED: Zaleplon 5 MG/CAP PO PRN (17:25)
[2024-05-25] MEDS ORDERED: ACETAMINOPHEN 325 MG/TAB PO PRN (17:25)
[2024-05-25] MEDS ORDERED: MAGNESIUM HYDROXIDE 30 ML UDC PO PRN (17:25)
[2024-05-25] MEDS ORDERED: METOPROLOL TARTRATE 25 MG/TAB PO SCH (21:00)
[2024-05-25] MEDS ORDERED: ATORVASTATIN CALCIUM 10 MG/TAB PO SCH (21:00)
[2024-05-26] VITALS: BP 115/52
[2024-05-26 03:34] VITALS: BP 121/63
[2024-05-26 04:00] VITALS: BP 121/63
[2024-05-26] MEDS ORDERED: ASPIRIN 81 MG/TAB PO SCH (09:00)
[2024-05-26] MEDS ORDERED: FUROSEMIDE 20 MG/TAB PO SCH (09:00)
[2024-05-26] MEDS ORDERED: LEVOTHYROXINE SODIUM 75 MCG/TAB PO SCH (09:00)
[2024-05-26] MEDS ORDERED: CLOPIDOGREL BISULFATE 75 MG/TAB TAB PO SCH (09:00)
[2024-05-26 09:02] VITALS: BP 121/63
[2024-05-26] MEDS ORDERED: NITROSTAT0.4 MG SL (11:12)
== END 2024-05-26 13:10 | disposition home or self-care (01) ==
LOC: ED 12:42 → ED-I 16:07 → ED 16:16 → MS2 16:17
PROVIDERS: Nurse Practitioner; ADMIT Internal Medicine; ATTEND Internal Medicine
DX: R07.89 Other chest pain (principal); I25.10 Atherosclerotic heart disease of native coronary artery without angina pectoris; I50.9 Heart failure, unspecified; E03.9 Hypothyroidism, unspecified; K59.00 Constipation, unspecified; I25.2 Old myocardial infarction; Z95.5 Presence of coronary angioplasty implant and graft; Z87.820 Personal history of traumatic brain injury